=== PATIENT | male | born 1960 ===

== ENCOUNTER 2024-07-27 14:52 | Outpatient (CLI) | payer MEDICARE, SELFPAY | END 2024-07-27 14:53 | disposition home or self-care (01) | PROVIDERS: PCP Nurse Practitioner Family; Visit Provider Nurse Practitioner Family | DX: M25.562 Pain in left knee (principal) | CPT/HCPCS: 73562 ==

== ENCOUNTER 2024-07-30 08:00 | Outpatient (RCR) | payer MEDICARE, OTHER, SELFPAY ==
--- NOTE | 2024-07-30 08:11 | OPREHPOC ---
Outpatient Therapy Plan of Care This is a Multidisciplinary Plan of Care that may contain components documented by all disciplines (PT, OT, and ST.) PT Problem 1 PT Problem #1 Knowledge Deficit PT Goal 1 Goal / Goal Update The patient will be independent in a home exercise program. Target Visit 2 PT Problem 2 PT Problem #2 Pain PT Goal 1 Goal / Goal Update The patient will report no greater than 3/10 left knee pain with squatting and stair negotiation. Target Visit 10 PT Problem 3 PT Problem #3 Impaired Functional Mobility PT Goal 1 Goal / Goal Update The patient will demonstrate 20% or less self perceived disability per the LEFS questionnaire. Target Visit 10 PT Problem 4 PT Problem #4 Impaired Gait PT Goal 1 Goal / Goal Update The patient will demonstrate a non-antalgic gait pattern and be able to ambulate 1,000 feet during the 6 minute walk test to tolerate job duties. Target Visit 10 PT Problem 5 PT Problem #5 Impaired Strength PT Goal 1 Goal / Goal Update 1. The patient will demonstrate 4+/5 left knee extension strength to improve ability to perform job tasks. 2. The patient will be able to lift 50# from floor to waist with good body mechanics to perform job tasks. Target Visit 10
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
== END 2024-07-31 20:00 | disposition home or self-care (01) ==
LOC: CHSPT 08:00
PROVIDERS: PCP Nurse Practitioner Family; Visit Provider Nurse Practitioner Family
DX: M25.562 Pain in left knee (principal)
CPT/HCPCS: 97014; 97110; 97161; G0283